=== PATIENT | female | born 1995 | race Caucasian/White ===

== ENCOUNTER → 2017-10-06 16:28 | Outpatient (CLI) | payer OTHER, SELFPAY ==
--- NOTE | 2017-10-09 09:04 | P.PFT.S_ITS ---
Pulmonary Function Test Referral & Results Date Patient Seen: 10/06/17 Requesting provider: Faby Minor Indication: Dyspnea after exertion Results: This is a methacholine challenge Initial spirometry demonstrated an FVC of 3.58 L and an FEV1 of 2.92 L which are 93 and 80% of predicted respectively. The ratio was 82 which is 94% of predicted After maximum methacholine was administered patient had a 23% reduction in FEV1 and a 69% reduction in FEF 25-75%. Both of these numbers returned to baseline after bronchodilator Interpretation: This appears to be a positive methacholine challenge with a 23% change in FEV1 that was reversed by bronchodilator. Patient also had obvious wheezing per the infectious disease technician. Patient did have some symptoms associated with the administration methacholine
== END ==
PROVIDERS: Visit Provider Nurse Practitioner Family
DX: R06.09 Other forms of dyspnea (principal)
CPT/HCPCS: 94060; 94070; 95070